=== PATIENT | female | born 1985 | race Caucasian/White ===

== ENCOUNTER 2018-04-24 10:53 | Outpatient (REF) | payer MEDICAID, SELFPAY ==
--- NOTE | 2018-04-24 10:15 | PAPFT_PTH ---
PATIENT: Krista James LOC: [facility]#:[id number] AGE/SX: 32/F ROOM: RE04/24/[address]: Ericka Painting : 1985 BED: DIS: 04/24/2018 SPEC #: [id number] RECD: 04/24/18 12:34 STATUS: DARWIN GARCIA #: [id number] JANINE: 04/24/18 10:[address]: Ericka Painting DEPT: [facility] Cytology RECD BY: Twila Doll Tissues: 1 - CX/ENDOCX FOR PAP SMEARS Procedures: PAP THIN PREP/UVM Screening HPV DNA PROBE Comments: [id number]
== END 2018-04-24 11:13 ==
LOC: NCHCN 10:53
PROVIDERS: PCP Nurse Practitioner; Visit Provider Nurse Practitioner
DX: R35.0 Frequency of micturition (principal); Z12.4 Encounter for screening for malignant neoplasm of cervix; Z11.51 Encounter for screening for human papillomavirus (HPV)
CPT/HCPCS: 88142; 87086; 87624

== ENCOUNTER 2019-09-28 13:26 | Outpatient (REF) | payer MEDICAID, SELFPAY ==
[2019-09-30 09:20] LABS: COVID-19 RT-PCR Result Negative (Negative)
== END 2019-09-28 13:46 ==
LOC: NCHCN 13:26
PROVIDERS: PCP Nurse Practitioner; Visit Provider Nurse Practitioner Family
DX: Z11.59 Encounter for screening for other viral diseases (principal)
CPT/HCPCS: U0003

== ENCOUNTER 2019-11-04 13:51 | Outpatient (REF) | payer MEDICAID, SELFPAY ==
--- NOTE | 2019-11-04 13:15 | PAPFT_PTH ---
PATIENT: Krista James LOC: [facility]#:[id number] AGE/SX: 34/F ROOM: RE11/04/[address]: Ericka Painting : 1985 BED: DIS: 11/04/2019 SPEC #: [id number] RECD: 11/04/19 14:44 STATUS: DARWIN REChevy #: [id number] JANINE: 11/04/19 13:[address]: Ericka Painting DEPT: [facility] Cytology RECD BY: Twila Doll Tissues: 1 - CX/ENDOCX FOR PAP SMEARS Procedures: PAP THIN PREP/UVM Screening HPV DNA PROBE Comments: [id number]
== END 2019-11-04 14:11 ==
LOC: NCHCN 13:51
PROVIDERS: PCP Nurse Practitioner; Visit Provider Nurse Practitioner
DX: Z12.4 Encounter for screening for malignant neoplasm of cervix (principal); Z11.51 Encounter for screening for human papillomavirus (HPV)
CPT/HCPCS: 88142; 87624

== ENCOUNTER 2023-07-22 12:40 | Outpatient (REF) | payer OTHER, SELFPAY ==
--- NOTE | 2023-07-22 11:30 | PAPFT_PTH ---
[facility]: [id number] AGE/SX: 38/F ROOM: RE07/22/[address]: EMILIA ARELLANO : 1985 BED: DIS: 07/22/2023 SPEC #: [id number] RECD: 07/22/23 18:21 STATUS: DARWIN REQ #: [id number] JANINE: 07/22/23 11:[address]: Emilia Arellano [facility] Cytology RECD BY: Twila Doll ENTERED: 07/22/23 18:21 SP TYPE: PAPFT OTHR DR: Ericka Painting Tissues: 1 - CX/ENDOCX FOR PAP SMEARS Procedures: PAP THIN PREP/UVM Screening HPV DNA PROBE Comments: [id number]
== END 2023-07-22 12:41 | disposition home or self-care (01) ==
LOC: NCHCN 12:40
PROVIDERS: PCP Nurse Practitioner; Visit Provider Nurse Practitioner Family
DX: Z00.00 Encounter for general adult medical examination without abnormal findings (principal); Z12.4 Encounter for screening for malignant neoplasm of cervix; Z11.51 Encounter for screening for human papillomavirus (HPV)
CPT/HCPCS: 88142; 87624

== ENCOUNTER 2024-07-07 20:43 | Outpatient (REF) | payer OTHER, SELFPAY ==
--- OUTSIDE RECORDS SUMMARY | 2024-07-07 20:44 | XMS_ITS | Clinical Summary ---
Author Organization [facility] Address [address] [place] [address] Care Team Providers Care Saxophone Player Name Role Phone Unknown, Provider MD Primary Care Provider Unava ilable Social History Tobacco Use Types Packs/Day Years Used Date Smoking Tobacco: Never Assessed Comments Unknown Sex and Gender Information Value Date Recorded Sex Assigned at Not on file Legal Sex Female 18:34 EST Gender Identity Not on file Sexual Orientation Not on file Plan of Treatment Health Maintenance Due Date Last Done Comments Hepatitis C Screen 1985 Hepatitis B Vaccine (1 of 3 - 19+ 3-dose series) 05/12 COVID-19 Vaccine ( season) 2024 Insurance [employer] Care Teams Saxophone Player Relationship Specialty Start Date End Date Unknown, Provider, PCP - General 04/11/09
--- OUTSIDE RECORDS SUMMARY | 2024-07-07 20:44 | XMS_ITS | Referral Summary ---
Author Organization [facility] Address [address] [place] [address] Care Team Providers Care Livestock Trader Name Role Phone Unknown, Provider Primary Care Provider Unava ilable Social History Tobacco Use Types Packs/Day Years Used Date Smoking Tobacco: Never Assessed Comments Unknown Sex and Gender Information Value Date Recorded Sex Assigned at Not on file Legal Sex Female 18:34 EST Gender Identity Not on file Sexual Orientation Not on file Plan of Treatment Not on file Insurance [employer] Care Teams Livestock Trader Relationship Specialty Start Date End Date Unknown, Provider, PCP - General 04/11/09
--- OUTSIDE RECORDS SUMMARY | 2024-07-07 20:44 | XMS_ITS | Encounter Summary ---
Author Organization [facility] Address [address] [place] [address] Care Team Providers Care Paper Cutter Operator Name Role Phone Unknown, Provider Primary Care Provider Unava ilable Encounter Details Date Type Department Care Team (Late st Contact Info) Description 06/19/2021 Lab Requisition [facility] Pathology & Laboratory Medicine - [facility] [address] [place] [address] Outr Resulting Lab, Provider Social History Tobacco Use Types Packs/Day Years Used Date Smoking Tobacco: Never Assessed Comments Unknown Sex and Gender Information Value Date Recorded Sex Assigned at Not on file Legal Sex Female 18:34 EST Gender Identity Not on file Sexual Orientation Not on file documented as of this encounter Plan of Treatment Not on file documented as of this encounter Procedures Procedure Name Priority Date/Time Associated Diagnosis Comments ZZCOVID-19 TEST [facility] PCR Today 06/19/2021 8:54 EST COVID-19 TESTING Routine 06/19/2021 8:54 EST documented in this encounter Results * COVID-19 TEST [facility] PCR (06/19/2021 8:54 EST) Swab 06/19/2021 8:54 EST 06/19/2021 21:31 EST us Provider Outr Resulting Lab MICROBIOLOGY - GENER AL ORDERABLES Final Result [facility] [address] [place] [address] * COVID-19 TESTING (06/19/2021 8:54 EST) COVID-19 rt-PCR Result Negative Negative 06/20/2021 1:40 EST [facility] Comment: This test has not been FDA cleared or approved. This test has been authorized by FDA under an EUA for use by authorized laboratories. This test has been authorized only for detection of nucleic acid from 2019-nCoV, not for any other viruses or pathogens. This test is only authorized for the duration of the declaration that circumstances exist justifying the authorization of emergency use of in vitro diagnostic tests for detection and/or diagnosis of 2019-nCoV under section 564(b)(1) of Act, 21 U.S.C ?? 360bbb-3(b) (1), unless the authorization is terminated or revoked sooner. Negative results do not preclude 2019-nCoV infection and should not be used as the sole basis for treatment or other patient management decisions. Negative results must be combined with clinical observations, patient history, and epidemiological information. Performed on the Nextnavher Fusion instrument Performing Lab [place] [facility] Lab 06/20/2021 1:40 EST [facility] Swab 06/19/2021 8:54 EST 06/19/2021 21:31 EST us Provider Outr Resulting Lab MICROBIOLOGY - GENER AL ORDERABLES Final Result [facility] [address] [place] [address] documented in this encounter Visit Diagnoses Not on filedocumented in this encounter Care Teams Paper Cutter Operator Relationship Specialty Start Date End Date Unknown, Provider, PCP - General 04/11/09 documented as of this encounter
--- OUTSIDE RECORDS SUMMARY | 2024-07-07 20:44 | XMS_ITS | Encounter Summary ---
Author Organization [facility] Address [address] [place] [address] Care Team Providers Care Light Equipment Operator Name Role Phone Unknown, Provider Primary Care Provider Unava ilable Encounter Details Date Type Department Care Team (Latest Contact Info) Description 07/23/2023 Lab Requisition [facility] Pathology & Laboratory Medicine - [facility] [address] [place] [address] Emilia Arellano FNP [facility] [address] [place] [address] Encounter for screening for human papillomavirus (HPV); Encounter for screening for malignant neoplasm of cervix; Encounter for general adult medical examination without abnormal findings Social History Tobacco Use Types Packs/Day Years [...] Procedure Name Priority Date/Time Associated Diagnosis Comments PAP TEST Today 07/22/2023 11:30 EST HPV DNA DETECTION WITH GENOTYPING, PCR Today 07/22/2023 11:30 EST documented in this encounter Results * HUMAN PAPILLOMAVIRUS (HPV) DETECTION-HIGH RISK TYPES (07/22/2023 11:30 EST) HPV other High Risk types, PCR Negative Negative 08/05/2023 15:28 EST [facility] Comment:No E6 or E7 mRNA is detected from HPV types 16,18,31,33,35,39,45,51,52,56,58,59,66, and 68 by school transportation supervisor mediated amplification. Pap Test CERVIX UTERI STRUCTURE / Unknown 07/22/2023 11:30 EST 08/02/2023 17:13 EST Emilia Arellano HEEL PRICKER MICROBIOLOGY - GENERAL ORDERA BLES Final Result [facility] [address] [place] [address] * PAP TEST (07/22/2023 11:30 EST) Specimens A. Cervix and/or Endocervix , ThinPrep Imaging System with Manual Evaluation 08/05/2023 15:28 [facility] Specimen Adequacy Satisfactory for Evaluation - transformation zone component present 08/05/2023 15:28 [facility] General Categorization Negative for intraepithelial lesion or malignancy 08/05/2023 15:28 [facility] Descriptive Diagnosis Reactive cellular changes associated with inflammation present (includes repair). 08/05/2023 15:28 [facility] Attestation By the signature below, the attending physician certifies that they have personally conducted a gross and/or microscopic examination of the described specimens and rendered or confirmed the above diagnosis. 08/05/2023 15:28 [facility] at 1528 Clinical History See Below 08/05/19 24 15:28 [facility] HPV The result for the Human Papillomavirus (HPV) Detection-High Risk Types is Negative. No E6 or E7 mRNA is detected from HPV types 16,18,31,33,35,39 ,45,51,52,56,58,5 9,66, and 68 by school transportation supervisor mediated amplification.Azucena ting was performed on specimen [id number] and was resulted on 08/05/2023 1528 EST by NITA, LAB INSTRUMENT RESULTS IN 08/05/2023 15:28 [facility] Performing Lab [facility] 08/05/2023 15:28 [facility] Scanned Images 08/05/2023 15:28 EST [facility] Pap Test CERVIX UTERI STRUCTURE / Unknown 07/22/2023 11:30 EST 07/23/2023 14:49 EST us Emilia Arellano HEEL PRICKER PATHOLOGY ORDERABLES Final Re sult [facility] [address] [place] [address] documented in this encounter Visit Diagnoses Diagnosis Encounter for screening for human papillomavirus (HPV) Special screening examination for human papillomavirus (HPV) Encounter for screening for malignant neoplasm of cervix Screening for malignant neoplasm of the cervix Encounter for general adult medical examination without abnormal findings Unspecified general medical examination documented in this encounter Care Teams Light Equipment Operator Relationship Specialty Start Date End Date Unknown, Provider, PCP - General 04/11/09 documented as of this encounter
--- OUTSIDE RECORDS SUMMARY | 2024-07-07 20:45 | XMS_ITS | Encounter Summary ---
Author Organization [facility] Address [address] [place] [address] Care Team Providers Care Physical Fitness Trainer Name Role Phone Unknown, Provider Primary Care Provider Unava ilable Encounter Details Date Type Department Care Team (Late st Contact Info) Description 04/24/2018 Results Only [facility] [phone] Ericka Small, JULIUS [address] [place] [address] Social History Tobacco Use Types Packs/Day Years [...] Name Priority Date/Time Associated Diagnosis Comments PAP TEST- RESULT ONLY Routine 04/24/2018 0:00 EST documented in this encounter Results * PAP TEST- RESULT ONLY (04/24/2018 0:00 EST) Pathology Report: CYTOPATHOLOGY REPORT Reports generated via electronic interface contain original data; however they are lacking the format of the original report. Caution should be taken when reading/interpreti ng unformatted reports. Name: ? KRISTA JAMES ? Accession #: ? [id number] ? : ? 1985 (Age: 32) ??F ?Collect Date: ? 04/24/2018 ? Location: ? [facility] ? Receive Date: ? 04/25/2018 ? Provider: ERICKA SMALL MARRIAGE AND FAMILY TEACHER Copy to: ? Final Report SPECIMEN ADEQUACY ? Satisfactory for Evaluation - transformation zone component present GENERAL CATEGORIZATION ? Negative for Intraepithelial Lesion or Malignancy ?? Last Menstrual Period: 04/06/18 Hormonal/Contracep tive status: NuvaRing Previous Gynecologic Pathology: LSIL: 2009 Other: Additional clinical information: Z00.00 Z12.4 Z11.51 Specimen/Source: ??Pap Test, Cervix, ThinPrep Imaging System with manual evaluation Document reviewed and electronically signed by: ? Ciara Michelle, [facility](ASCP) ? Report ??Date: 05/06/2018 10:24 HPV with Pap Test ? Date Ordered: ? 05/06/2018 ? Status: ?? Signed Out ?Date Complete: ? 05/07/2018 ? By: ??System Interface ? Date Reported: ? 05/07/2018 ? Interpretation RESULT: POSITIVE FOR HIGH OR INTERMEDIATE RISK HPV. E6 OR E7 mRNA from one or more types of HPV types 16,18,31, 33,35,39,45,51,52, 56,58,59,66, and 68 is detected by field recorder mediated amplification. High and intermediate risk HPV types are associated with most squamous intraepithelial lesions and cervical cancers. Comments Document reviewed and electronically signed by: ? System Interface ? Report date: 05/07/2018 By the signature above, the attending physician certifies that he/she has personally conducted a gross and/or microscopic examination of the described specimens and rendered or confirmed the above diagnosis. End of Report [facility] 04/24/2018 04/25/2018 us Ericka Small NP PATHOLOGY ORDERABLES Final Res ult [facility] [address] [place] [address] documented in this encounter Visit Diagnoses Not on filedocumented in this encounter Care Teams Physical Fitness Trainer Relationship Specialty Start Date End Date Unknown, Provider, PCP - General 04/11/09 documented as of this encounter
--- OUTSIDE RECORDS SUMMARY | 2024-07-07 20:45 | XMS_ITS | Encounter Summary ---
Author Organization [facility] Address [address] [place] [address] Care Team Providers Care Emergency Doctor Name Role Phone Unknown, Provider Primary Care Provider Unava ilable Encounter Details Date Type Department Care Team (Late st Contact Info) Description 06/25/2007 Results Only [facility] [address] [place] [address] [place] [id number] [place] [address] Social History Tobacco Use Types [...] Procedure Name Priority Date/Time Associated Diagnosis Comments CYTOPATHOLOGY Routine 06/25/2007 0:00 EST documented in this encounter Results * CYTOPATHOLOGY (06/25/2007 0:00 EST) Pathology Report: CYTOPATHOLOGY REPORT Reports generated via electronic interface contain original data; however they are lacking the format of the original report. Caution should be taken when reading/interpreti ng unformatted reports. Name: ? KRISTA JAMES ? Accession #: ? [id number] : ? 1985 (Age: 22) ??F ?Collect Date: ? 06/25/2007 Location: ? [facility] ? Receive Date: ? 06/26/2007 Provider: ?KENNY BETANCUR CNM Copy to: ? Specimen/Source: ?ThinPrep Pap Test, Cervix/Endocervix, processed on [employer] ThinPrep Imaging System, with manual evaluation Last Menstrual Period: ? 08/15/06 Menstrual/Pregnanc y Status: ? Post Hormonal/Contracep tive Status: ? Condoms Other: ? HPVA - HPV testing requested if ASC-US on the current ThinPrep Pap test. ? SPECIMEN ADEQUACY ? Satisfactory for Evaluation - assessment of transformation zone component not applicable ( e.g. atrophy, vaginal sample, hysterectomy) GENERAL CATEGORIZATION ? Negative for Intraepithelial Lesion or Malignancy ? Document reviewed and electronically signed by: ? SOSA Noguera(ASCP) ? Report Date: ??06/30/2007 11:05 End of Report [facility] 06/25/2007 06/26/2007 us Kenny Martinezkareen FITZPATRICKNimco PATHOLOGY ORDERABLES Final Resul t [facility] [address] [place] [address] documented in this encounter Visit Diagnoses Not on filedocumented in this encounter Care Teams Emergency Doctor Relationship Specialty Start Date End Date Unknown, Provider, PCP - General 04/11/09 documented as of this encounter
--- OUTSIDE RECORDS SUMMARY | 2024-07-07 20:45 | XMS_ITS | Encounter Summary ---
Author Organization [facility] Address [address] [place] [address] Care Team Providers Care Survey Worker Name Role Phone Unavailable Primary Care Provider Unavailabl e Encounter Details Date Type Department Care Team (Late st Contact Info) Description 04/07/2009 Orders Only [facility] [phone] Cynthia Vera MD [address] [place] [address] Social History Tobacco Use Types Packs/Day Years [...] Procedure Name Priority Date/Time Associated Diagnosis Comments SURGICAL PATHOLOGY Routine 04/07/2009 0:00 EDT documented in this encounter Results * SURGICAL PATHOLOGY (04/07/2009 0:00 EDT) Pathology Report: SURGICAL PATHOLOGY REPORT ? Reports generated via electronic interface contain original data; ? however they are lacking the format of the original report. ? Caution should be taken when reading/interpreting unformatted reports. ? Name: ? MINSHULL, KRISTA ? Accession #: ? [id number] ? : ? 1985 (Age: 23) ??F ? Collect Date: ? 04/07/2009 ? Location: ? [facility] ? Receive Date: ? 04/07/2009 ? Provider: CYNTHIA S LINA MD ? Copy to: BEBETO PAYAM MD ? Final Pathologic Diagnosis: ? A. ?Ectocervix, 1 o'clock, biopsy: ? 1. ?Transformation zone mucosa with acute and chronic inflammation and ?? reactive changes. ??See comment. ? B. ?Endocervix, curettage: ? 1. ?Fragments of benign endocervical mucosa. ??See comment. ? Comment: ? Deeper levels of specimens (A) and (B) were examined. ??Flat Optical Element Maker ? sections were reviewed in the intradepartmental consultation conference. ??( ?? Irwin)/mpl ? Document reviewed and electronically signed by: ? Harpal Gayle MD ? Report ??Date: 04/12/2009 08:05 ? By the signature above, the attending physician certifies that he/she has ? personally conducted a gross and/or microscopic examination of the described ? specimens and rendered or confirmed the above diagnosis. ? Specimen(s) Received: ? Colpo ? A. ?Ectocervix 1 o'clock ? B. ? Endocervix ? Clinical History: ? Pap LSIL 09/09, LMP: 10/09/09 ? Gross Description: ? Received in formalin labelled Minshull, Krista and ectocervix 1 o'clock is a single, 0.6 x 0.4 x 0.3 cm, vargas-white, irregular soft tissue submitted in ?? toto as (A). ? Received in formalin labelled Minshull, Krista and endocervix is a 0.8 x 0.6 x 0.2 cm aggregate of red-vargas, hemorrhagic tissue admixed with mucus. ??The ? specimen is filtered and entirely submitted as (B). ??(Heike Lazaro)/[facility] ? End of Report ? [facility] 04/07/2009 04/07/2009 7:1 8 EDT us Cynthia Vera MD PATHOLOGY ORDERABLES Final Resu lt [facility] [address] [place] [address] documented in this encounter Visit Diagnoses Not on filedocumented in this encounter
--- OUTSIDE RECORDS SUMMARY | 2024-07-07 20:45 | XMS_ITS | Encounter Summary ---
Author Organization [facility] Address [address] [place] [address] Care Team Providers Care Engine Repairer Name Role Phone Unknown, Provider Primary Care Provider Unava ilable Encounter Details Date Type Department Care Team (Late st Contact Info) Description 09/28/2019 Lab Requisition [facility] Pathology & Laboratory Medicine - [facility] [address] [place] [address] Nestor Jones MD [address] [place] [phone] Encounter for other general examination Social History Tobacco Use Types Packs/Day Years [...] Priority Date/Time Associated Diagnosis Comments ZZCOVID-19 TEST [facility] PCR Today 09/28/2019 11:28 EDT Encounter for other general examination documented in this encounter Results * COVID-19 TEST [facility] (09/28/2019 11:28 EDT) COVID-19 rt-PCR Result Negative Negative 09/29/2019 18:46 EDT [facility] Comment: Negative results do not preclude 2019-nCoV infection and should not be used as the sole basis for treatment or other patient management decisions. Negative results must be combined with clinical observations, patient history, and epidemiological information. This test has not been FDA cleared or approved. This test has been internally validated, but independent review and determination of emergency use authorization ??(EUA) by the FDA is pending. Performed on the BMEYE Fast Swab ENTIRE NASOPHARYNX / Unknown 09/28/2019 11:28 EDT 09/28/2019 20:35 EDT us Nestor Jones MD MICROBIOLOGY - GENERAL BANDAR PEDRAZA Final Result [facility] [address] [place] [address] documented in this encounter Visit Diagnoses Diagnosis Encounter for other general examination documented in this encounter Care Teams Engine Repairer Relationship Specialty Start Date End Date Unknown, Provider, PCP - General 04/11/09 documented as of this encounter
--- OUTSIDE RECORDS SUMMARY | 2024-07-07 20:45 | XMS_ITS | Encounter Summary ---
Author Organization [facility] Address [address] [place] [address] Care Team Providers Care Bobbin Collector Name Role Phone Unknown, Provider Primary Care Provider Unava ilable Encounter Details Date Type Department Care Team (Late st Contact Info) Description 12/13/2011 Results Only [facility] - [facility] [address] [place] [address] Alycia Strauss, JULIUS [address] [place] [address] Social History Tobacco Use Types Packs/Day Years [...] Diagnosis Comments PAP TEST- RESULT ONLY Routine 12/13/2011 0:00 EDT documented in this encounter Results * PAP TEST- RESULT ONLY (12/13/2011 0:00 EDT) Pathology Report: CYTOPATHOLOGY REPORT Reports generated via electronic interface contain original data; however they are lacking the format of the original report. Caution should be taken when reading/interpreti ng unformatted reports. Name: ? ASHLEY JAMES ? Accession #: ? [id number] : ? 1985 (Age: 26) ??F ?Collect Date: ? 12/13/2011 Location: ? [facility] ? Receive Date: ? 12/17/2011 Provider: ?ALYCIA STRAUSS APARTMENT MAINTENANCE MANAGER Copy to: ? Specimen/Source: ?Pap Test, Cervix/Endocervix, ThinPrep Imaging System with manual evaluation Last Menstrual Period: ? 12/07/11 Previous Gynecologic Pathology: ? LSIL: 02/23 ? SPECIMEN ADEQUACY ? Satisfactory for Evaluation - transformation zone component present GENERAL CATEGORIZATION ? Negative for Intraepithelial Lesion or Malignancy ? Document reviewed and electronically signed by: ? ABIMBOLA MONROE MD ? Report Date: ??12/24/2011 15:24 End of Report [facility] 12/13/2011 12/17/2011 us Alycia Strauss APARTMENT MAINTENANCE MANAGER PATHOLOGY ORDERABLES Final Res ult [facility] [address] [place] [address] documented in this encounter Visit Diagnoses Not on filedocumented in this encounter Care Teams Bobbin Collector Relationship Specialty Start Date End Date Unknown, Provider, PCP - General 04/11/09 documented as of this encounter
--- OUTSIDE RECORDS SUMMARY | 2024-07-07 20:45 | XMS_ITS | Encounter Summary ---
Author Organization [facility] Address [address] [place] [address] Care Team Providers Care Physical Design Engineer Name Role Phone Unknown, Provider Primary Care Provider Unava ilable Encounter Details Date Type Department Care Team (Late st Contact Info) Description 02/03/2021 Lab Requisition [facility] Pathology & Laboratory Medicine - [facility] [address] [place] [address] Outr Resulting Lab, Provider Social History Tobacco [...] Priority Date/Time Associated Diagnosis Comments ZZCOVID-19 TEST [facility] PCR Today 02/03/2021 9:28 EDT COVID-19 TESTING Routine 02/03/2021 9:28 EDT documented in this encounter Results * COVID-19 TEST [facility] PCR (02/03/2021 9:28 EDT) Swab ENTIRE NASOPHARYNX / Unknown 02/03/2021 9:28 EDT 02/03/2021 15:32 EDT us Provider Outr Resulting Lab MICROBIOLOGY - GENER AL ORDERABLES Final Result [facility] [address] [place] [address] * COVID-19 TESTING (02/03/2021 9:28 EDT) COVID-19 rt-PCR Result Negative Negative 02/03/2021 18:29 EDT [facility] Comment: This test has not [...] history, and epidemiological information. Performed on the [employer] Fusion instrument Performing Lab [place] [facility] 02/03/2021 18:29 EDT [facility] Swab 02/03/2021 9:28 EDT 02/03/2021 15:32 EDT us Provider Outr Resulting Lab MICROBIOLOGY - GENER AL ORDERABLES Final Result [facility] [address] [place] [address] documented in this encounter Visit Diagnoses Not on filedocumented in this encounter Care Teams Physical Design Engineer Relationship Specialty Start Date End Date Unknown, Provider, PCP - General 04/11/09 documented as of this encounter
--- OUTSIDE RECORDS SUMMARY | 2024-07-07 20:45 | XMS_ITS | Encounter Summary ---
Author Organization [facility] Address [address] [place] [address] Care Team Providers Care Motor Builder Winder Name Role Phone Unknown, Provider Primary Care Provider Unava ilable Encounter Details Date Type Department Care Team (Late st Contact Info) Description 06/29/2004 Results Only [facility] [address] [place] [address] [place], [place] [id number] Social History Tobacco Use Types Packs/Day Years [...] Priority Date/Time Associated Diagnosis Comments CYTOPATHOLOGY Routine 06/29/2004 0:00 EST documented in this encounter Results * CYTOPATHOLOGY (06/29/2004 0:00 EST) Pathology Report: CYTOPATHOLOGY REPORT Reports generated via electronic interface contain original data; however they are lacking the format of the original report. Caution should be taken when reading/interpreti ng unformatted reports. Name: ? KRISTA JAMES ? Accession #: ? [id number] : ? 1985 (Age: 19) ??F ?Collect Date: ? 06/29/2004 Location: ? [facility] ? Receive Date: ? 07/03/2004 Provider: ?JESENIA DALEY CNM Copy to: ? Specimen/Source: ?ThinPrep Pap Test, Cervix/Endocervix Last Menstrual Period: ? 03/15/04 Other: ? Additional clinical information: [facility] 06/18/04 HPVA - HPV testing requested if ASC-US on the current ThinPrep Pap test. ? SPECIMEN ADEQUACY ? Satisfactory for Evaluation - transformation zone component present GENERAL CATEGORIZATION ? Negative for Intraepithelial Lesion or Malignancy ? Document reviewed and electronically signed by: ? Jesenia Painting, [facility](ASCP) ? Report Date: ??07/05/2004 08:58 End of Report [facility] 06/29/2004 07/03/2004 us Jesenia Daley CNM PATHOLOGY ORDERABLES Final Res ult [facility] [address] [place] [address] documented in this encounter Visit Diagnoses Not on filedocumented in this encounter Care Teams Motor Builder Winder Relationship Specialty Start Date End Date Unknown, Provider, PCP - General 04/11/09 documented as of this encounter
--- OUTSIDE RECORDS SUMMARY | 2024-07-07 20:45 | XMS_ITS | Encounter Summary ---
Author Organization [facility] Address [address] [place] [address] Care Team Providers Care Switch Operator Name Role Phone Unknown, Provider Primary Care Provider Unava ilable Encounter Details Date Type Department Care Team (Late st Contact Info) Description 08/08/2009 Results Only [facility] Laboratory Services - [facility] ([facility] [address] [place] [address] Lonny Arshad MD [address] [place] [address] Social History Tobacco Use Types [...] Date/Time Associated Diagnosis Comments SURGICAL PATHOLOGY Routine 08/08/2009 0:00 EST documented in this encounter Results * SURGICAL PATHOLOGY (08/08/2009 0:00 EST) Pathology Report: SURGICAL PATHOLOGY REPORT ? Reports generated via electronic interface contain original data; ? however they are lacking the format of the original report. ? Caution should be taken when reading/interpreti ng unformatted reports. ? Name: ? MINSHULL, KRISTA ? Accession #: ? [id number] ? : ? 1985 (Age: 24) ??F ? Collect Date: ? 08/08/2009 ? Location: ? [facility] ? Receive Date: ? 08/08/2009 ? Provider: LONNY ARSHAD MD ? Copy to: CHERYL F SONIYA DO ? Final Pathologic Diagnosis: ? Gallbladder, cholecystectomy: ? 1. ?Chronic cholecystitis. ? 2. ? Cholelithiasis (gross diagnosis). ? 3. ? Cholesterolosis. ? Document reviewed and electronically signed by: ? Sameer Ventura, MD ? Report ??Date: 08/11/2009 15:36 ? By the signature above, the attending physician certifies that he/she has ? personally conducted a gross and/or microscopic examination of the described ? specimens and rendered or confirmed the above diagnosis. ? Specimen(s) Received: ? Gallbladder ? Clinical History: ? Biliary colic ? Gross Description: ? Received in formalin labelled Krista James and gallbladder is a ? gallbladder that is received in two pieces which, when reconstructed, has ? approximate dimensions of 6.5 x 3.0 x 2.2 cm. ??There is an attached, 0.7 cm in ?? length by 0.4 cm in diameter segment of patent cystic duct, the margin of which is inked black. ??The serosa of the gallbladder is rodriguez-purple and smooth. ??The ?? mucosa is vargas-brown and prominently velvety, however, if focally denuded and ? erythematous at the fundus. ??The average wall thickness is 0.2 cm and there are no masses present. ??Within the lumen of the gallbladder and within the specimen container are numerous yellow, multifaceted choleliths and cholelith fragments ?? that range from 0.1 to 1.2 cm in greatest dimension. ??[employer] sales representative ? sections of gallbladder as well as the en face cystic duct margin are submitted in a single cassette. ??/[facility] ? End of Report ? [facility] 08/08/2009 08/08/2009 16: 33 EST us Lonny Arshad MD PATHOLOGY ORDERABLES Final Resul t [facility] [address] [place] [address] documented in this encounter Visit Diagnoses Not on filedocumented in this encounter Care Teams Switch Operator Relationship Specialty Start Date End Date Unknown, Provider, PCP - General 04/11/09 documented as of this encounter
--- OUTSIDE RECORDS SUMMARY | 2024-07-07 20:45 | XMS_ITS | Encounter Summary ---
Author Organization [facility] Address [address] [place] [address] Care Team Providers Care Cargo Handler Name Role Phone Unknown, Provider Primary Care Provider Unava ilable Encounter Details Date Type Department Care Team (Late st Contact Info) Description 05/23/2004 Results Only [facility] - [facility] conversion [address] [place] [address] Kenny Betancur [place] [id number] [place] [address] Social History Tobacco Use Types [...] Priority Date/Time Associated Diagnosis Comments CYTOPATHOLOGY Routine 05/23/2004 0:00 EST documented in this encounter Results * CYTOPATHOLOGY (05/23/2004 0:00 EST) Pathology Report: CYTOPATHOLOGY REPORT Reports generated via electronic interface contain original data; however they are lacking the format of the original report. Caution should be taken when reading/interpreti ng unformatted reports. Name: ? KRISTA JAMES ? Accession #: ? [id number] : ? 1985 (Age: 19) ??F ?Collect Date: ? 05/23/2004 Location: ? [facility] ? Receive Date: ? 05/25/2004 Provider: ?KENNY BETANCUR CNM Copy to: ? Specimen/Source: ?ThinPrep Pap Test, Cervix/Endocervix Last Menstrual Period: ? 03/15/04 Menstrual/Pregnanc y Status: ? Other: ? HPVA - HPV testing requested if ASC-US on the current ThinPrep Pap test. ? SPECIMEN ADEQUACY ? Unsatisfactory for Evaluation, - insufficient numbers of squamous epithelial cells (less than 10% of expected cellularity) GENERAL CATEGORIZATION ? Specimen processed and examined, but unsatisfactory for evaluation of epithelial abnormality. Recommend repeat Pap test or further follow up, as clinically indicated. ? Document reviewed and electronically signed by: ? SOSA Gray(ASCP) ? Report Date: ??05/31/2004 13:44 End of Report [facility] 05/23/2004 05/25/2004 us Kenny Betancur [employer] PATHOLOGY ORDERABLES Final Resul t [facility] [address] [place] [address] documented in this encounter Visit Diagnoses Not on filedocumented in this encounter Care Teams Cargo Handler Relationship Specialty Start Date End Date Unknown, Provider, PCP - General 04/11/09 documented as of this encounter
--- OUTSIDE RECORDS SUMMARY | 2024-07-07 20:45 | XMS_ITS | Encounter Summary ---
Author Organization [facility] Address [address] [place] [address] Care Team Providers Care Rn Case Management Name Role Phone Unknown, Provider Primary Care Provider Unava ilable Encounter Details Date Type Department Care Team (Late st Contact Info) Description 01/16/2010 Results Only [facility] Laboratory Services - [facility] [place] [address] [place] [address] [phone] Diana Lilly, RADIOLOGY RN Social History Tobacco Use Types Packs/Day Years [...] Procedure Name Priority Date/Time Associated Diagnosis Comments HPV DETECTION, HIGH RISK TYPES Routine 01/16/2010 8:17 EDT CYTOPATHOLOGY Routine 01/16/2010 0:00 EDT documented in this encounter Results * HUMAN PAPILLOMA VIRUS DNA TEST (01/16/2010 8:17 EDT) Specimen Description Cervix, ThinPrep vial [facility] Result Negative for HPV types 16, 18, 31, 33, 35, 39, 45, 51, 52, 56, 58, 59, and 68. [facility] Report Status Final 01/23/2010 [facility] 01/16/2010 8:17 EDT 01/19/2010 8:17 EDT us Diana Lilly NP MICROBIOLOGY - GENERAL ORDERA BLES Final Result [facility] [address] [place] [address] * CYTOPATHOLOGY (01/16/2010 0:00 EDT) Pathology Report: CYTOPATHOLOGY REPORT ? Reports generated via electronic interface contain original data; ? however they are lacking the format of the original report. ? Caution should be taken when reading/interpreti ng unformatted reports. ? Name: ? KRISTA JAMES ? Accession #: ? [id number] ? : ? 1985 (Age: 24) ??F ?Collect Date: ? 01/16/2010 ? Location: ? [facility] ? Receive Date: ? 01/17/2010 ? Provider: ?DIANA M IRASEMA RADIOLOGY RN ? Copy to: ? Specimen/Source: ?Pap Test, Cervix/Endocervix, ThinPrep Imaging System ? with manual evaluation ? Last Menstrual Period: ? 07/18/10 ? Hormonal/Contracep tive Status: ? Yes: Nuva Ring ? Previous Gynecologic Pathology: ? LSIL: [facility] ? Treatment History: ? Miscellaneous treatment: 03/25 ectocx. bx. transf. zone mucosa with acute & ? chr. inflam. & react. changes. endocx. currettage frag. of benign endocervical ?? mucosa ? Other: ? HPVDX - HPV testing requested regardless of diagnosis on current ThinPrep Pap ?? test. ? SPECIMEN ADEQUACY ? Satisfactory for Evaluation ? - transformation zone component present ? GENERAL CATEGORIZATION ? Negative for Intraepithelial Lesion or Malignancy ? Document reviewed and electronically signed by: ? Diya Guylogg, [place](ASCP) ? Report Date: ??01/18/2010 15:43 ? End of Report ? [facility] 01/16/2010 01/17/2010 us Diana Lilly RADIOLOGY RN PATHOLOGY ORDERABLES Final Re sult [facility] [address] [place] [address] documented in this encounter Visit Diagnoses Not on filedocumented in this encounter Care Teams Rn Case Management Relationship Specialty Start Date End Date Unknown, Provider, PCP - General 04/11/09 documented as of this encounter
--- OUTSIDE RECORDS SUMMARY | 2024-07-07 20:45 | XMS_ITS | Encounter Summary ---
Author Organization [facility] Address [address] [place] [address] Care Team Providers Care Chassis Driver Name Role Phone Unknown, Provider Primary Care Provider Unava ilable Encounter Details Date Type Department Care Team (Latest Contact Info) Description 11/05/2019 Lab Requisition [facility] Pathology & Laboratory Medicine - [facility] [address] [place] [address] Ericka Painting NP [address] [place] [address] Encounter for general adult medical examination without abnormal findings; Encounter for screening for malignant neoplasm of cervix; Encounter for screening for human papillomavirus (HPV) Social History Tobacco Use Types Packs/Day Years [...] Date/Time Associated Diagnosis Comments PAP TEST Today 11/04/2019 13:15 EDT Encounter for general adult medical examination without abnormal findings Encounter for screening for malignant neoplasm of cervix Encounter for screening for human papillomavirus (HPV) HPV DNA DETECTION WITH GENOTYPING, PCR Today 11/04/2019 13:15 EDT Encounter for general adult medical examination without abnormal findings Encounter for screening for malignant neoplasm of cervix Encounter for screening for human papillomavirus (HPV) documented in this encounter Results * HUMAN PAPILLOMAVIRUS (HPV) DETECTION-HIGH RISK TYPES (11/04/2019 13:15 EDT) HPV other High Risk types, PCR Negative Negative 11/13/2019 17:05 [facility] Comment:No E6 or E7 mRNA is detected from HPV types 16,18,31,33,35,39,45,51,52,56,58,59,66, and 68 by intramural director mediated amplification. Papanicolaou smear specimen (specimen) CERVIX UTERI STRUCTURE / Unknown 11/04/2019 13:15 EDT 11/12/2019 15:02 EDT us Ericka Painting NP MICROBIOLOGY - GENERAL ORDERAB LES Final Result [facility] [address] [place] [address] * PAP TEST (11/04/2019 13:15 EDT) Specimens A. Cervix and/or Endocervix , ThinPrep Imaging System with Manual Evaluation 11/13/2019 17:05 [facility] Specimen Adequacy Satisfactory for Evaluation - transformation zone component present Scant due to excessive blood 11/13/2019 17:05 [facility] General Categorization Negative for intraepithelial lesion or malignancy 11/13/2019 17:05 [facility] Descriptive Diagnosis Reactive cellular changes associated with inflammation present (includes repair). 11/13/2019 17:05 [facility] Attestation By the signature below, the attending physician certifies that they have personally conducted a gross and/or microscopic examination of the described specimens and rendered or confirmed the above diagnosis. 11/13/2019 17:05 [facility] at 1705 Educational Comments An additional slide was prepared and evaluated. 11/13/2019 17:05 [facility] Clinical History SEE ORDER COMMENTS 11/13/2019 17:05 [facility] HPV The result for the Human Papillomavirus (HPV) Detection-High Risk Types is Negative. No E6 or E7 mRNA is detected from HPV types 16,18,31,33,35,39 ,45,51,52,56,58,5 9,66, and 68 by intramural director mediated amplification.Azucena ting was performed on specimen [id number] and was resulted on 11/13/2019 1704 EDT by NITA, LAB INSTRUMENT RESULTS IN 11/13/2019 17:05 EDT [facility] Scanned Images 11/13/2019 17:05 EDT [facility] Papanicolaou smear specimen (specimen) CERVIX UTERI STRUCTURE / Unknown 11/04/2019 13:15 EDT 11/05/2019 8:36 EDT us Ericka Painting NP PATHOLOGY ORDERABLES Final Res ult [facility] [address] [place] [address] documented in this encounter Visit Diagnoses Diagnosis Encounter for general adult medical examination without abnormal findings Unspecified general medical examination Encounter for screening for malignant neoplasm of cervix Screening for malignant neoplasm of the cervix Encounter for screening for human papillomavirus (HPV) Special screening examination for human papillomavirus (HPV) documented in this encounter Care Teams Chassis Driver Relationship Specialty Start Date End Date Unknown, Provider, PCP - General 04/11/09 documented as of this encounter
--- OUTSIDE RECORDS SUMMARY | 2024-07-07 20:45 | XMS_ITS | Encounter Summary ---
Author Organization [facility] Address [address] [place] [address] Care Team Providers Care Logistics Service Representative Name Role Phone Unknown, Provider Primary Care Provider Unava ilable Encounter Details Date Type Department Care Team (Late st Contact Info) Description 11/24/2010 Results Only [facility] Laboratory [facility] - [facility] ([facility] [place] [facility] [address] [place] [address] Alycia Strauss, JUL[address] [place] [address] Social History Tobacco Use Types [...] Diagnosis Comments PAP TEST- RESULT ONLY Routine 11/24/2010 0:00 EDT documented in this encounter Results * PAP TEST- RESULT ONLY (11/24/2010 0:00 EDT) Pathology Report: CYTOPATHOLOGY REPORT ? Reports generated via electronic interface contain original data; ? however they are lacking the format of the original report. ? Caution should be taken when reading/interpreti ng unformatted reports. ? Name: ? KRISTA JAMES ? Accession #: ? [id number] ? : ? 1985 (Age: 25) ??F ?Collect Date: ? 11/24/2010 ? Location: ? [facility] ? Receive Date: ? 11/27/2010 ? Provider: ?ALYCIA STRAUSS WIND TURBINE DESIGN ENGINEER ? Copy to: ? Specimen/Source: ?Pap Test, Cervix/Endocervix, ThinPrep Imaging System ? with manual evaluation ? Last Menstrual Period: ? 11/17/2010 ? Hormonal/Contracep tive Status: ? Yes ? Previous Gynecologic Pathology: ? LSIL: 9/09 ? Treatment History: ? Miscellaneous treatment: Ecto cx bx 10/09 ? SPECIMEN ADEQUACY ? Satisfactory for Evaluation ? - transformation zone component present ? GENERAL CATEGORIZATION ? Negative for Intraepithelial Lesion or Malignancy ? Document reviewed and electronically signed by: ? Emilia [place],CT(ASCP) ? Report Date: ??12/01/2010 15:13 ? End of Report ? [facility] 11/24/2010 11/27/2010 us Alycia Strauss WIND TURBINE DESIGN ENGINEER PATHOLOGY ORDERABLES Final Res ult [facility] [address] [place] [address] documented in this encounter Visit Diagnoses Not on filedocumented in this encounter Care Teams Logistics Service Representative Relationship Specialty Start Date End Date Unknown, Provider, PCP - General 04/11/09 documented as of this encounter
== END 2024-07-07 20:44 | disposition home or self-care (01) ==
LOC: LBN 20:43
PROVIDERS: Visit Provider Nurse Practitioner Family
DX: N30.01 Acute cystitis with hematuria (principal)
CPT/HCPCS: 87077; 87086; 87186